=== PATIENT | male | born 1950 | race Caucasian/White ===

== ENCOUNTER 2020-02-13 13:38 | Inpatient (IN) | payer OTHER, MEDICARE ==
[~2020-02-13] VITALS: Ht 182.9 cm; Wt 96.0 kg
[~2020-02-13 13:38] MED LIST: ASPI-1 PO; ATOR40TA PO; GABA-532 PO; HYDR-3972 PO; IBUP-1984 PO; METF-438 PO; METH-603 PO
[2020-02-13] MEDS ORDERED: CefTRIAXone 2gm/D5W 50ml BAG 50 ML IV ONE (15:50)
[2020-02-13] MEDS ORDERED: HYDROcodone/acetaminophen 5mg/325mg tablet PO ONE (15:50)
[2020-02-13] MEDS ORDERED: ondansetron 4mg rapidly disintigrating tab PO ONE (15:50)
[2020-02-13] MEDS ORDERED: normal saline 1000ML IV soln IV ONE (15:50)
[2020-02-13] MEDS ORDERED: vancomycin/NS 1 GM ADD-VANTAGE 250 ML IV ONE (15:50)
[2020-02-13] MEDS ORDERED: mag hydrox/Alum hydrox/simeth 30ml oral suspension PO PRN (16:45)
[2020-02-13] MEDS ORDERED: dextrose 50%-water 50ml dispensing syringe IV PRN ×2 (16:45)
[2020-02-13] MEDS ORDERED: dextrose ORAL solution 15 GM/59 ML bottle PO PRN ×2 (16:45)
[2020-02-13] MEDS ORDERED: acetaminophen 325mg tablet PO PRN ×2 (16:45)
[2020-02-13] MEDS ORDERED: morphine 2 MG/ML inj. syringe IV PRN (16:45)
[2020-02-13] MEDS ORDERED: MESSAGE TO PHARMACY PO ONE (16:45)
[2020-02-13] MEDS ORDERED: HYDROcodone/acetaminophen 5mg/325mg tablet PO PRN (16:45)
[2020-02-13] MEDS ORDERED: glucagon, human recombinant 1mg kit SUBCUT PRN (16:45)
[2020-02-13] MEDS ORDERED: ondansetron/PF 4mg/2ml inj IV PRN (16:45)
[2020-02-13] MEDS ORDERED: magnesium hydroxide 30ml (MOM) UD suspension PO PRN (16:45)
[2020-02-13 17:00] LABS: BASOPHILS # (AUTO) 0.1 X10'3 (0-0.2); BASOPHILS % (AUTO) 1.2 % (0-1); EOSINOPHILS # (AUTO) 0.3 X10'3 (0-0.9); EOSINOPHILS % (AUTO) 2.3 % (0-6); HEMATOCRIT 40.4 % (42.0-52.0); HEMOGLOBIN 13.8 g/dl (14.0-17.9); LYMPHOCYTES # (AUTO) 2.6 X10'3 (1.1-4.8); LYMPHOCYTES % (AUTO) 24.2 % (21-51); MEAN CORPUSCULAR HEMOGLOBIN 30.4 PG (27.0-31.0); MEAN CORPUSCULAR HGB CONC 34.2 g/dL (33.0-36.5); MEAN PLATELET VOLUME 8.4 FL (7.4-10.4); MONOCYTES # (AUTO) 0.7 X10'3 (0-0.9); MONOCYTES % (AUTO) 6.8 % (2-12); NEUTROPHILS % (AUTO) 65.5 % (42-75); PLATELET COUNT 312 X10'3 (140-440); RED BLOOD COUNT 4.54 X10'6 (4.70-6.10); RED CELL DISTRIBUTION WIDTH 14.1 % (11.5-14.5); WHITE BLOOD COUNT 10.7 X10'3 (4.5-11.0)
[2020-02-13 17:14] LABS: ALANINE AMINOTRANSFERASE 25 U/L (12-78); ALBUMIN 3.9 G/DL (3.4-5.0); ALKALINE PHOSPHATASE 83 IU/L (46-116); ANION GAP 10 (8-16); ASPARTATE AMINO TRANSFERASE 17 U/L (10-37); BILIRUBIN,TOTAL 0.3 MG/DL (0.1-1.0); BLOOD UREA NITROGEN 22 MG/DL (7-18); CALCIUM 8.9 MG/DL (8.5-10.1); CHLORIDE 105 MMOL/L (99-107); CREATININE 0.88 MG/DL (0.60-1.10); GLUCOSE 109 MG/DL (70-104); MAGNESIUM 2.1 MG/DL (1.5-2.4); POTASSIUM 4.2 MMOL/L (3.5-5.1); SODIUM 141 MMOL/L (135-145); TOTAL CARBON DIOXIDE 26.1 MMOL/L (24-32); TOTAL PROTEIN 7.9 G/DL (6.4-8.2); eGFR 86 ML/MIN
[2020-02-13 17:15] LABS: CLARITY,URINE CLEAR (Clear); COLOR,URINE YELLOW (Yellow); GLUCOSE, URINE NEGATIVE (Neg); KETONES,URINE NEGATIVE (Neg); LEUKOCYTE ESTERASE ,URINE NEGATIVE (Neg); NITRITES, URINE NEGATIVE (Neg); OCCULT BLOOD,URINE TRACE-INTACT (Neg); PROTEIN,URINE NEGATIVE (Neg); UROBILINOGEN,URINE 0.2 E.U/dL (0.2-1.0)
[2020-02-13 17:20] LABS: UA COLLECTION TYPE CLN CATCH MIDSTREAM
[2020-02-13 17:22] LABS: HEMOGLOBIN A1C 7.3 % (4.5-6.2)
[2020-02-13 17:48] LABS: BACTERIA,URINE NONE SEEN /HPF (Neg); RBC,URINE 0-2 /HPF (0-2); WBC,URINE NONE SEEN /HPF (0-4)
[2020-02-13 17:49] LABS: SQUAMOUS EPITHELIAL CELL,UR NONE SEEN /LPF (FEW)
[2020-02-13] MEDS ORDERED: NAPR375T5 PO (17:49)
[2020-02-13] MEDS ORDERED: ACET-1025 PO (17:51)
[2020-02-13] MEDS ORDERED: DICL100G30 TOP (17:52)
[2020-02-13] MEDS: insulin glargine (Lantus) pen - multi-dose SQ SCH (21:00)
[2020-02-13 23:32] VITALS: BP 120/68
[2020-02-14] VITALS (20 sets, daily range): BP systolic 135–172; BP diastolic 45–102
[2020-02-14] MEDS: HYDROcodone/acetaminophen 10/325mg tab PO PRN ×2 (05:43→20:21)
[2020-02-14] MEDS: vancomycin/NS 1 GM ADD-VANTAGE 250 ML IV SCH ×2 (05:44→18:36)
--- NOTE | 2020-02-14 06:39 | NUR ---
Patient in room [facility]. I have received report from TERA Browning and had the opportunity to ask questions and assume patient care.
--- NOTE | 2020-02-14 06:55 | NUR ---
REPORT GIVEN TO CRISSY. PAIN MED GIVEN TO PATIENT. NO ACUTE DISTRESS
[2020-02-14 08:12] LABS: BASOPHILS # (AUTO) 0.1 X10'3 (0-0.2); EOSINOPHILS # (AUTO) 0.3 X10'3 (0-0.9); EOSINOPHILS % (AUTO) 2.9 % (0-6); HEMATOCRIT 38.1 % (42.0-52.0); LYMPHOCYTES # (AUTO) 2.3 X10'3 (1.1-4.8); LYMPHOCYTES % (AUTO) 24.5 % (21-51); MEAN CORPUSCULAR HEMOGLOBIN 30.3 PG (27.0-31.0); MEAN CORPUSCULAR VOLUME 89.2 FL (78-98); MEAN PLATELET VOLUME 8.4 FL (7.4-10.4); MONOCYTES # (AUTO) 0.8 X10'3 (0-0.9); MONOCYTES % (AUTO) 8.1 % (2-12); NEUTROPHILS % (AUTO) 63.5 % (42-75); PLATELET COUNT 285 X10'3 (140-440); RED BLOOD COUNT 4.28 X10'6 (4.70-6.10); RED CELL DISTRIBUTION WIDTH 14.1 % (11.5-14.5); WHITE BLOOD COUNT 9.4 X10'3 (4.5-11.0)
[2020-02-14 08:42] LABS: ALBUMIN 3.3 G/DL (3.4-5.0); ANION GAP 11 (8-16); BLOOD UREA NITROGEN 21 MG/DL (7-18); BUN/CREATININE RATIO 23.9 (5.4-32.0); CHLORIDE 105 MMOL/L (99-107); CREATININE 0.88 MG/DL (0.60-1.10); GLUCOSE 126 MG/DL (70-104); POTASSIUM 4.3 MMOL/L (3.5-5.1); SODIUM 140 MMOL/L (135-145); TOTAL CARBON DIOXIDE 24.5 MMOL/L (24-32); eGFR 86 ML/MIN
[2020-02-14 09:09] LABS: CALCIUM 8.5 MG/DL (8.5-10.1)
[2020-02-14] MEDS: morphine 2 MG/ML inj. syringe IV PRN (09:16)
[2020-02-14] MEDS ORDERED: ATOR20TA66 PO (09:56)
[2020-02-14] MEDS ORDERED: sevoflurane 250ml liquid IH ONE (15:07)
[2020-02-14] MEDS ORDERED: midazolam 2 mg/2 ml injection ONE (15:12)
[2020-02-14] MEDS ORDERED: fentaNYL/PF 50MCG/1 ML 2ML syringe ONE (15:12)
[2020-02-14] MEDS ORDERED: morphine 2 MG/ML inj. syringe IV PRN (15:15)
[2020-02-14] MEDS ORDERED: meperidine/PF 25mg/ml syringe IV PRN ×2 (15:15)
[2020-02-14] MEDS ORDERED: ondansetron/PF 4mg/2ml inj IV PRN (15:15)
[2020-02-14] MEDS ORDERED: proCHLORperazine 10 MG/2 ml inj IV PRN (15:15)
[2020-02-14] MEDS ORDERED: ringers solution, lacted 1,000 ML IV SCH (15:15)
[2020-02-14] MEDS ORDERED: propofol inj 20 ML IV ONE (15:30)
[2020-02-14] MEDS ORDERED: BUPIVAcaine/PF 2.5 mg/ml (0.25%) 30ml vial ONE (15:40)
[2020-02-14] MEDS ORDERED: meperidine/PF 25mg/ml syringe ONE (15:47)
[2020-02-14] MEDS ORDERED: bacitracin 15gm ointment TP ONE (15:54)
--- NOTE | 2020-02-14 15:59 | NUR ---
DM education, A1c 7.3%, patient was not in the room at the time of visit. needs written DM education handout with verbal review prior to discharge. Addendum: 02/14/20 at [address] Amended: Links added.
[2020-02-14] MEDS: meperidine/PF 25mg/ml syringe IV PRN ×2 (16:23→16:30)
[2020-02-14] MEDS: morphine 4 MG/ML inj SYRINge IV PRN ×3 (16:44→17:13)
--- NOTE | 2020-02-14 17:43 | NUR ---
Report called to receiving nurse. Transferred via BED, NO Belongings, NURSES AIDE IN ROOM, BLL, CALL LIGHT GIVEN TO PT, SIDE RAILS UP X 2, RECEIVING RN NOTIFIED OF PTS ARRIVAL. Special Issues communicated to receiving nurse. YES. Addendum: 02/14/20 at 1810 by Lyndsey Crouch RN Amended: Links added.
--- NOTE | 2020-02-14 18:45 | NUR ---
Problems reprioritized. Patient report given, questions answered & plan of care reviewed with TERA Gatica.
[2020-02-14] MEDS: lactobacillus rhamnosus 10,000 MMU CELLS/CAPSULE PO SCH (20:17)
[2020-02-14] MEDS: insulin glargine (Lantus) pen - multi-dose SQ SCH (20:56)
[2020-02-15] VITALS: BP 104/53
[2020-02-15] MEDS: HYDROcodone/acetaminophen 10/325mg tab PO PRN ×5 (00:31→21:11)
[2020-02-15 04:00] VITALS: BP 126/66
[2020-02-15] MEDS: vancomycin/NS 1 GM ADD-VANTAGE 250 ML IV SCH ×2 (05:19→17:07)
[2020-02-15 06:34] LABS: BASOPHILS # (AUTO) 0.1 X10'3 (0-0.2); BASOPHILS % (AUTO) 1.1 % (0-1); EOSINOPHILS % (AUTO) 0.2 % (0-6); HEMATOCRIT 37.7 % (42.0-52.0); HEMOGLOBIN 12.5 g/dl (14.0-17.9); LYMPHOCYTES # (AUTO) 1.3 X10'3 (1.1-4.8); MEAN CORPUSCULAR HEMOGLOBIN 29.4 PG (27.0-31.0); MEAN CORPUSCULAR HGB CONC 33.1 g/dL (33.0-36.5); MEAN CORPUSCULAR VOLUME 88.9 FL (78-98); MEAN PLATELET VOLUME 8.2 FL (7.4-10.4); MONOCYTES # (AUTO) 0.7 X10'3 (0-0.9); MONOCYTES % (AUTO) 6.4 % (2-12); NEUTROPHILS # (AUTO) 8.2 X10'3 (1.8-7.7); NEUTROPHILS % (AUTO) 79.3 % (42-75); PLATELET COUNT 288 X10'3 (140-440); RED BLOOD COUNT 4.24 X10'6 (4.70-6.10); RED CELL DISTRIBUTION WIDTH 13.7 % (11.5-14.5); WHITE BLOOD COUNT 10.3 X10'3 (4.5-11.0)
--- NOTE | 2020-02-15 06:41 | NUR ---
Problems reprioritized. Patient report given, questions answered & plan of care reviewed with TERA Hutton.
--- NOTE | 2020-02-15 06:42 | NUR ---
Patient in room [facility]. I have received report from Soraya HALEY and had the opportunity to ask questions and assume patient care.
[2020-02-15 06:46] LABS: ALBUMIN 3.1 G/DL (3.4-5.0); ANION GAP 9 (8-16); BLOOD UREA NITROGEN 19 MG/DL (7-18); BUN/CREATININE RATIO 20.9 (5.4-32.0); CALCIUM 8.5 MG/DL (8.5-10.1); CHLORIDE 104 MMOL/L (99-107); CREATININE 0.91 MG/DL (0.60-1.10); GLUCOSE 131 MG/DL (70-104); POTASSIUM 3.7 MMOL/L (3.5-5.1); SODIUM 139 MMOL/L (135-145); TOTAL CARBON DIOXIDE 25.9 MMOL/L (24-32); eGFR 83 ML/MIN
[2020-02-15 07:00] VITALS: BP 136/77
[2020-02-15] MEDS: lactobacillus rhamnosus 10,000 MMU CELLS/CAPSULE PO SCH ×2 (07:25→19:50)
[2020-02-15] MEDS: insulin Lispro (HumaLOG) vial - multi-dose SQ SCH (09:09)
[2020-02-15] MEDS: morphine 2 MG/ML inj. syringe IV PRN ×2 (10:01→23:14)
[2020-02-15 12:00] VITALS: BP 132/63
--- NOTE | 2020-02-15 12:15 | NUR ---
Pt's blood glucose was 69 at 1200 with pt denying symptoms, 15g Glucose shot given per protocol, 1215 Blood glucose is 118. Will continue to monitor.
--- NOTE | 2020-02-15 14:54 | NUR ---
F/u: Pt seen at bedside for DM education. Pt reports checking his BG levels 2-3 times a day and states he takes his medications per rx. Pt reports having DM for roughly 8 years now and is already familiar with the diet. Pt denies questions about diabetes management at this time. Written DM education and RD contact information provided. Pt currently on a CHO controlled diet, reports consuming 100% of meals and not getting full. Pt agrees to double protein TID for satiety and reports disliking green beans, d/w dietary. Pt denies food allergies, difficulty chewing/swallowing, or constipation/diarrhea. LBM 02/13 per bedside RN. Will continue to follow. Addendum: 02/15/20 at [address] Amended: Links added.
[2020-02-15] MEDS ORDERED: VANCOMYCIN LEVEL IV ONE (16:30)
--- NOTE | 2020-02-15 17:26 | NUR ---
1700 bag of Vanco split open when preparing for infusion. Pharmacy phoned.
--- NOTE | 2020-02-15 18:15 | NUR ---
Problems reprioritized. Patient report given, questions answered & plan of care reviewed with Soraya HALEY.
[2020-02-15 20:00] VITALS: BP 137/77
[2020-02-15] MEDS: insulin glargine (Lantus) pen - multi-dose SQ SCH (21:00)
[2020-02-16] VITALS: BP 144/79
[2020-02-16] MEDS: HYDROcodone/acetaminophen 10/325mg tab PO PRN ×2 (01:22→05:17)
[2020-02-16] MEDS: vancomycin/NS 1 GM ADD-VANTAGE 250 ML IV SCH (05:14)
--- NOTE | 2020-02-16 06:04 | NUR ---
Problems reprioritized. Patient report given, questions answered & plan of care reviewed with TERA Wiley.
--- NOTE | 2020-02-16 06:39 | NUR ---
Patient in room [facility]. I have received report from TERA Lira and had the opportunity to ask questions and assume patient care.
[2020-02-16 06:49] LABS: ALBUMIN 3.3 G/DL (3.4-5.0); ANION GAP 5 (8-16); BLOOD UREA NITROGEN 22 MG/DL (7-18); BUN/CREATININE RATIO 22.2 (5.4-32.0); CALCIUM 8.4 MG/DL (8.5-10.1); CHLORIDE 107 MMOL/L (99-107); CREATININE 0.99 MG/DL (0.60-1.10); GLUCOSE 111 MG/DL (70-104); SODIUM 139 MMOL/L (135-145); TOTAL CARBON DIOXIDE 26.9 MMOL/L (24-32); eGFR 75 ML/MIN
[2020-02-16 06:51] LABS: BASOPHILS # (AUTO) 0.1 X10'3 (0-0.2); BASOPHILS % (AUTO) 1.1 % (0-1); EOSINOPHILS # (AUTO) 0.3 X10'3 (0-0.9); EOSINOPHILS % (AUTO) 2.8 % (0-6); HEMATOCRIT 37.4 % (42.0-52.0); HEMOGLOBIN 12.9 g/dl (14.0-17.9); LYMPHOCYTES # (AUTO) 2.9 X10'3 (1.1-4.8); LYMPHOCYTES % (AUTO) 30.9 % (21-51); MEAN CORPUSCULAR HEMOGLOBIN 30.6 PG (27.0-31.0); MEAN CORPUSCULAR HGB CONC 34.5 g/dL (33.0-36.5); MEAN CORPUSCULAR VOLUME 88.7 FL (78-98); MEAN PLATELET VOLUME 8.4 FL (7.4-10.4); MONOCYTES # (AUTO) 0.8 X10'3 (0-0.9); MONOCYTES % (AUTO) 8.5 % (2-12); NEUTROPHILS # (AUTO) 5.3 X10'3 (1.8-7.7); NEUTROPHILS % (AUTO) 56.7 % (42-75); PLATELET COUNT 275 X10'3 (140-440); RED BLOOD COUNT 4.22 X10'6 (4.70-6.10); WHITE BLOOD COUNT 9.4 X10'3 (4.5-11.0)
[2020-02-16 07:00] VITALS: BP 153/93
[2020-02-16] MEDS: lactobacillus rhamnosus 10,000 MMU CELLS/CAPSULE PO SCH ×2 (07:57→19:29)
[2020-02-16 11:00] VITALS: BP 155/84
[2020-02-16] MEDS: oxyCODONE/APAP 10/325mg tablet PO PRN ×2 (14:40→19:29)
--- NOTE | 2020-02-16 15:00 | NUR ---
Dr Sage called regarding dressing orders and follow up appointment. Orders received to leave dressing in place until pt is able to follow up in wound care clinic on Tuesday or Tuesday. Dressing is currently CDI. Will continue to monitor.
[2020-02-16] MEDS ORDERED: OXYC-145 PO (15:09)
[2020-02-16] MEDS ORDERED: DOXY-243 PO (15:09)
[2020-02-16] MEDS: VANCOmycin 1250MG/NS 250ml Bag 250 ML IV SCH (17:17)
--- NOTE | 2020-02-16 18:11 | NUR ---
Problems reprioritized. Patient report given, questions answered & plan of care reviewed with TERA Dickerson.
--- NOTE | 2020-02-16 18:53 | NUR ---
Patient in room [facility]. I have received report from Franklyn HALEY and had the opportunity to ask questions and assume patient care. Addendum: 02/16/20 at 1854 by Jayla Herrera RN Inez HALEY i received report from
[2020-02-16 20:00] VITALS: BP 129/71
[2020-02-16] MEDS: insulin glargine (Lantus) pen - multi-dose SQ SCH (21:00)
[2020-02-17 00:14] VITALS: BP 150/88
[2020-02-17] MEDS: oxyCODONE/APAP 10/325mg tablet PO PRN ×3 (05:22→19:50)
[2020-02-17] MEDS: VANCOmycin 1250MG/NS 250ml Bag 250 ML IV SCH (05:22)
--- NOTE | 2020-02-17 06:16 | NUR ---
Problems reprioritized. Patient report given, questions answered & plan of care reviewed with Loreta HALEY.
--- NOTE | 2020-02-17 06:26 | NUR ---
Patient in room [facility]. I have received report from TERA Dickerson and had the opportunity to ask questions and assume patient care.
[2020-02-17 07:03] LABS: BASOPHILS # (AUTO) 0.1 X10'3 (0-0.2); BASOPHILS % (AUTO) 1.2 % (0-1); EOSINOPHILS # (AUTO) 0.3 X10'3 (0-0.9); EOSINOPHILS % (AUTO) 3.1 % (0-6); HEMATOCRIT 41.1 % (42.0-52.0); HEMOGLOBIN 13.9 g/dl (14.0-17.9); LYMPHOCYTES # (AUTO) 2.3 X10'3 (1.1-4.8); LYMPHOCYTES % (AUTO) 26.5 % (21-51); MEAN CORPUSCULAR HGB CONC 33.7 g/dL (33.0-36.5); MEAN PLATELET VOLUME 8.4 FL (7.4-10.4); MONOCYTES # (AUTO) 0.8 X10'3 (0-0.9); MONOCYTES % (AUTO) 9.5 % (2-12); NEUTROPHILS # (AUTO) 5.1 X10'3 (1.8-7.7); NEUTROPHILS % (AUTO) 59.7 % (42-75); PLATELET COUNT 294 X10'3 (140-440); RED BLOOD COUNT 4.62 X10'6 (4.70-6.10); RED CELL DISTRIBUTION WIDTH 13.9 % (11.5-14.5); WHITE BLOOD COUNT 8.6 X10'3 (4.5-11.0)
[2020-02-17 07:04] LABS: ALBUMIN 3.5 G/DL (3.4-5.0); ANION GAP 9 (8-16); BLOOD UREA NITROGEN 24 MG/DL (7-18); BUN/CREATININE RATIO 24.5 (5.4-32.0); CALCIUM 8.7 MG/DL (8.5-10.1); CHLORIDE 105 MMOL/L (99-107); CREATININE 0.98 MG/DL (0.60-1.10); GLUCOSE 124 MG/DL (70-104); POTASSIUM 4.1 MMOL/L (3.5-5.1); SODIUM 140 MMOL/L (135-145); TOTAL CARBON DIOXIDE 26.2 MMOL/L (24-32); eGFR 76 ML/MIN
[2020-02-17] MEDS: lactobacillus rhamnosus 10,000 MMU CELLS/CAPSULE PO SCH ×2 (07:13→19:50)
[2020-02-17 07:58] VITALS: BP 163/85
[2020-02-17] MEDS: ceFAZolin/D5W- 1GM premix 50 ML IV SCH ×2 (10:12→16:09)
[2020-02-17 11:00] VITALS: BP 137/73
--- NOTE | 2020-02-17 14:40 | NUR ---
DM Consult: Addressed; see prior [place] note. Addendum: 02/17/20 at [address] Amended: Links added.
--- NOTE | 2020-02-17 18:24 | NUR ---
Problems reprioritized. Patient report given, questions answered & plan of care reviewed with TERA Coates.
--- NOTE | 2020-02-17 18:45 | NUR ---
Patient in room [facility]. I have received report from Anyi HALEY and had the opportunity to ask questions and assume patient care.
[2020-02-17 20:11] VITALS: BP 145/86
[2020-02-17] MEDS: insulin glargine (Lantus) pen - multi-dose SQ SCH (20:46)
[2020-02-17] MEDS: insulin Lispro (HumaLOG) vial - multi-dose SQ SCH (20:47)
[2020-02-18] VITALS: BP 125/64
[2020-02-18] MEDS: ceFAZolin/D5W- 1GM premix 50 ML IV SCH ×2 (00:12→07:31)
[2020-02-18] MEDS ORDERED: VANCOMYCIN LEVEL IV ONE (04:30)
[2020-02-18] MEDS: oxyCODONE/APAP 10/325mg tablet PO PRN ×3 (04:30→13:12)
--- NOTE | 2020-02-18 06:22 | NUR ---
Problems reprioritized. Patient report given, questions answered & plan of care reviewed with Loreta HALEY.
[2020-02-18 06:46] LABS: BASOPHILS # (AUTO) 0.1 X10'3 (0-0.2); BASOPHILS % (AUTO) 0.8 % (0-1); EOSINOPHILS # (AUTO) 0.3 X10'3 (0-0.9); EOSINOPHILS % (AUTO) 3.3 % (0-6); HEMATOCRIT 41.2 % (42.0-52.0); HEMOGLOBIN 13.9 g/dl (14.0-17.9); LYMPHOCYTES # (AUTO) 2.1 X10'3 (1.1-4.8); LYMPHOCYTES % (AUTO) 24.5 % (21-51); MEAN CORPUSCULAR HEMOGLOBIN 29.7 PG (27.0-31.0); MEAN CORPUSCULAR HGB CONC 33.8 g/dL (33.0-36.5); MEAN CORPUSCULAR VOLUME 87.9 FL (78-98); MEAN PLATELET VOLUME 8.4 FL (7.4-10.4); MONOCYTES # (AUTO) 0.9 X10'3 (0-0.9); MONOCYTES % (AUTO) 10.1 % (2-12); NEUTROPHILS # (AUTO) 5.3 X10'3 (1.8-7.7); NEUTROPHILS % (AUTO) 61.3 % (42-75); PLATELET COUNT 295 X10'3 (140-440); RED BLOOD COUNT 4.69 X10'6 (4.70-6.10); RED CELL DISTRIBUTION WIDTH 13.8 % (11.5-14.5); WHITE BLOOD COUNT 8.6 X10'3 (4.5-11.0)
[2020-02-18 06:49] LABS: ALBUMIN 3.5 G/DL (3.4-5.0); ANION GAP 9 (8-16); BLOOD UREA NITROGEN 27 MG/DL (7-18); BUN/CREATININE RATIO 26.5 (5.4-32.0); CHLORIDE 103 MMOL/L (99-107); CREATININE 1.02 MG/DL (0.60-1.10); GLUCOSE 129 MG/DL (70-104); SODIUM 138 MMOL/L (135-145); TOTAL CARBON DIOXIDE 25.7 MMOL/L (24-32); eGFR 73 ML/MIN
[2020-02-18] MEDS: lactobacillus rhamnosus 10,000 MMU CELLS/CAPSULE PO SCH (07:31)
[2020-02-18 07:54] VITALS: BP 126/75
[2020-02-18 11:30] VITALS: BP 144/81
--- NOTE | 2020-02-18 14:50 | NUR ---
Patient discharged home via and taken from unit via wheelchair with x1 staff. Patient alert, oriented and in no apparent distress at time of discharge. Patient PIV removed with cannula intact. Patient took all belongings with him including discharge instructions. Patient discharge instructions discussed with him and he was given time for questions and answers. Patient was educated on when to take the next dose of each of his medications based on when the last dose was given. Patient home med list had Tylenol extra strength as one of his home medications. Patient was educated that his Percocet has acetaminophen and to be careful with the amount that he is taking so that he doesn't exceed the daily dose. Patient stated an understanding of this. CM was able to set up an appointment at the wound clinic for the patient on Tuesday at 0900. Patient stated an understanding of this as well and he was given the phone number and educated on where to check in on Tuesday. Patient stated feeling confident on discharge instructions.
== END 2020-02-18 14:49 | disposition home health service (06) | DRG 603 ==
LOC: ER 13:38 → ED HOLD 16:45 → SUR 3N 20:15
PROVIDERS: ADMIT Internal Medicine; ATTEND Internal Medicine
PROC: 0J9 Subcutaneous Tissue and Fascia, Drainage (ICD-10-PCS; principal; 2020-02-14 15:07)
DX: L02.511 Cutaneous abscess of right hand (principal); M65.9 Synovitis and tenosynovitis, unspecified; E11.9 Type 2 diabetes mellitus without complications; Z20.822 Contact with and (suspected) exposure to COVID-19; Z83.3 Family history of diabetes mellitus; Z87.891 Personal history of nicotine dependence; Z79.899 Other long term (current) drug therapy; Z88.0 Allergy status to penicillin
CPT/HCPCS: 36415; 71045; 73140; 80048; 80053; 80202; 81001; 82948; 83036; 83605; 83735; 83880; 84145; 85025; 85651; 87040; 87070; 87075; 87077; 87081; 87102; 87186; 87635; 93005; 96365; 99285; A4215; A4618; A6222; A6266; A6449; A7000; G0378; J0690; J0696; J1815; J2175; J2250; J2270; J2704; J3010; J3370; J3490; J7030

== ENCOUNTER 2020-04-01 10:51 | Emergency (ER) | payer OTHER, MEDICARE ==
[~2020-04-01] VITALS: Ht 182.9 cm; Wt 95.7 kg
[~2020-04-01 10:51] MED LIST changes: +ACET-1025 PO; -ASPI-1 PO; +ATOR20TA66 PO; -ATOR40TA PO; +DICL100G30 TOP; -GABA-532 PO; -HYDR-3972 PO; -IBUP-1984 PO; -METH-603 PO; +NAPR375T5 PO; +OXYC-145 PO
[2020-04-01 13:18] VITALS: BP 129/68
[2020-04-01] MEDS ORDERED: CLIN300C71 PO (14:27)
== END 2020-04-01 15:09 | disposition home or self-care (01) ==
LOC: ER 10:51
DX: L03.011 Cellulitis of right finger (principal); Z79.2 Long term (current) use of antibiotics; Z79.899 Other long term (current) drug therapy; Z88.0 Allergy status to penicillin
CPT/HCPCS: 99283

== ENCOUNTER → 2024-10-15 | Emergency (ER) | payer OTHER, BC, MEDICAID ==
[~2024-10-15] VITALS: Ht 182.9 cm; Wt 80.9 kg
[~2024-10-15] MED LIST changes: -ACET-1025 PO; -DICL100G30 TOP; +DOXY-224 PO; +EMPA25TA PO; +HYDR-3964 PO; +HYDR-3965 PO; -NAPR375T5 PO; +NICO-630 TD; -OXYC-145 PO; +TRAM50TA PO; +VIT1CAPS46 PO
[2024-10-15 12:50] VITALS: BP 113/72; PULSE 90; RESP 18; TEMP 96.7; O2SAT 98
[2024-10-15 13:24] LABS: MEAN PLATELET VOLUME 8.1 FL (7.4-10.4); RED CELL DISTRIBUTION WIDTH 14.6 % (11.5-14.5)
[2024-10-15 13:36] LABS: CREATININE 0.74 MG/DL (0.60-1.10); TOTAL CARBON DIOXIDE 29.4 MMOL/L (24-32); eCRCL 99 ML/MIN; eGFR > 90 ML/MIN
== END | disposition home or self-care (01) ==
LOC: ER 12:45
DX: L02.212 Cutaneous abscess of back [any part, except buttock and flank] (principal); Z53.21 Procedure and treatment not carried out due to patient leaving prior to being seen by health care provider
CPT/HCPCS: 36415; 80048; 83605; 84145; 85025; 87040

== ENCOUNTER 2024-10-16 10:05 | Inpatient (IN) | payer OTHER, BC, MEDICAID ==
[~2024-10-16] VITALS: Ht 175.3 cm; Wt 76.4 kg
[~2024-10-16 10:05] MED LIST changes: -DOXY-224 PO; -HYDR-3965 PO; -NICO-630 TD
[2024-10-16] MEDS ORDERED: iohexol 300mg/ml 100ml inj. ONE (10:29)
[2024-10-16] MEDS ORDERED: piperacillin/tazo 3.375gm/50ml 50 ML IV SCH (10:35)
--- NOTE | 2024-10-16 10:39 | Physician Documentation ---
History of Present Illness ~ Chief Complaint: Abscess Stated Complaint: IV ANTIBIOTICS Time Seen by MD: 10:08 Primary Medical Doctor: Josiah Feliz MD HPI 74-year-old male returns to the ED after eloping from the lobby yesterday after waiting 12 hours to be seen [facility] him to come to the ER for IV antibiotics secondary to a developing abscess/mass on the upper portion of his back in line with the spine and thoracic region. States that the wound is not draining reports increased pain and swelling denies any fevers or nausea vomiting Day of Onset: Oct 16, 2024 Tetanus Within 5 Years: Yes (FROM THE [facility]) Medication Reconciliation Allergies: Coded Allergies: Penicillins (Unverified Allergy, Unknown, CHILD, UNKNOWN REACTION, 10/16/24) Scheduled Atorvastatin Calcium (LIPITOR tablet), 80 MG PO DAILY, (Reported) Empagliflozin (Jardiance), 0.5 TAB PO QAM, (Reported) Metformin HCl (Metformin HCl), 1 TAB PO QAM, (Reported) Metformin HCl (Metformin HCl), 1 TAB PO EVERY OTHER EVENING, (Reported) Vit C/E/Zn/Coppr/Lutein/Zeaxan (Preservision Areds 2 Softgel), 1 CAP PO BID, (Reported) Scheduled PRN Hydrocodone Bit/Acetaminophen (Hydrocodon-Acetaminophen 5-325), 1 TAB PO Q4H PRN for MODERATE PAIN 4-6 Tramadol Hcl (Ultram), 1 TAB PO TID PRN for pain, (Reported) Past Medical History Past Medical History: Diabetes Past Surgical History: orthopedic surgeries Lives with: Spouse Lives In: Home Occupation: retired Review of Systems All Other Systems at this time: Reviewed and Negative ROS As stated above in the HPI, otherwise all systems are reviewed and negative. Physical Exam Vital Signs: Temperature: 98.4, Source: Temporal, Heart Rate: 84, Respiratory Rate: 18, BP: 115/75, Pulse Oximetry: 99, Weight: 76.400 Oxygen Flow Rate: 0 Physical Exam General: Alert, no apparent distress. HEENT: PERRL, EOMI, no injection, moist mucous membranes. Neck: Full range of motion. Respiratory: Lungs clear, no respiratory distress. Neurologic: Oriented x4. Psychiatric: Normal mood and affect. Skin: Multiple small areas ulcerations patient's back. In the upper thoracic region in line with the spine there is a large wound, growth, abscess that is purulent with surrounding erythema. Approximately 8 x 8 cm in size Progress Results/Orders Results/Orders Orders - AMPARO LEES RADIATOR CORE TESTER Ct Chest (10/16/24 11:05) Culture Blood (10/16/24 10:19) Chest,Single View (10/16/24 10:19) Monitor (10/16/24 10:19) Saline Lock (10/16/24 10:19) Page Hospitalist (10/16/24 ) Completed Orders - AMPARO LEES RADIATOR CORE TESTER Ct Chest (10/16/24 11:05) Cbc/Diff (10/16/24 10:19) Urinalysis, Cult If Indicated (10/16/24 10:19) Chest,Single View (10/16/24 10:19) Procalcitonin (10/16/24 10:19) BMP (10/16/24 10:19) Lacticsepsis (10/16/24 10:19) Iohexol 300mg/Ml 100ml Inj. (Omnipaque-3 (10/16/24 10:29) Piperacillin/Tazo 3.375gm/50ml (Zosyn 3. (10/16/24 10:35) Vancomycin*Pharmacy To Dose* (Vancomycin (10/16/24 10:35) Piperacillin/Tazo 3.375gm/50ml (Zosyn 3. (10/16/24 10:40) Vancomycin/Ns 1 Gm Add-[place] (Vancomyc (10/16/24 11:00) Medications Received in ER Medications (Trade) Dose Ordered Sig/Marti Route PRN Reason Start Time Stop Time Status Last Admin Dose Admin Piperacillin/ Tazobactam/ Dextrose 50 ml @ 12.5 mls/hr ONCE ONCE IV 10/16/24 10:40 10/16/24 14:34 DC 10/16/24 10:50 12.5 MLS/HR Vancomycin HCl 250 ml @ 166 mls/hr ONCE ONCE IV 10/16/24 11:00 10/16/24 12:30 DC 10/16/24 11:57 166 MLS/HR ([place] 10/325mg tab) 1 tab Q4H PRN PO SEVERE PAIN 7-10 10/16/24 12:25 10/16/24 14:17 1 TAB (Dilaudid inj.) 1 mg Q4H PRN IV SEVERE PAIN 7-10 10/16/24 12:25 10/16/24 15:42 1 MG Sodium Chloride 1,000 ml @ 100 mls/hr Q10H IV 10/16/24 12:25 10/16/24 14:15 100 MLS/HR Vital Signs 10/16/24 10/16/24 10/16/24 10:15 11:28 11:59 Temp 98.4 Pulse 84 82 Resp 18 16 B/P (MAP) 115/75 122/73 (89) Pulse Ox 99 95 O2 Flow Rate 0 0 Laboratory Tests Test 10/16/24 10:33 White Blood Count 14.7 H Red Blood Count 4.69 L Hemoglobin 13.4 L Hematocrit 39.9 L Mean Corpuscular Volume 85.0 Mean Corpuscular Hemoglobin 28.5 Mean Corpuscular Hemoglobin Concent 33.6 Red Cell Distribution Width 14.8 H Platelet Count 452 H Mean Platelet Volume 7.7 Neutrophils (%) (Auto) 78.3 H Lymphocytes (%) (Auto) 10.9 L Monocytes (%) (Auto) 6.9 Eosinophils (%) (Auto) 3.1 Basophils (%) (Auto) 0.8 Neutrophils # (Auto) 11.5 H Lymphocytes # (Auto) 1.6 Monocytes # (Auto) 1.0 H Eosinophils # (Auto) 0.5 Basophils # (Auto) 0.1 CBC Comment Sodium Level 136 Potassium Level 3.5 Chloride Level 97 L Carbon Dioxide Level 29.2 Anion Gap 10 Blood Urea Nitrogen 11 Creatinine 0.76 Estimated GFR/1.73 m2 > 90 BUN/Creatinine Ratio 14.5 Glucose Level 127 H Lactic Acid Level 1.8 Calcium Level 9.3 Albumin 3.0 L Procalcitonin < 0.05 Chemistry Comments Microbiology Date/Time Source Procedure Growth Status 10/16/24 10:53 Blood Hand Right Blood Culture - Preliminary NEGATIVE (LESS THAN 24 HOURS) Resulted Medical Decision Making Findings Patient clearly meets criteria for IV antibiotics based on the elevated white count and a positive lactic. I ordered a fluid bolus along with IV antibiotics and requested hospital admission Differential Dx:Considerations: Include: Abscess, Bacteremia, Cellulitis, Erysipelas, Felon, Gas gangrene, Hidrademitis suppurativa, Impetigo, Lymphangitis, Osteromyelitis, Paronychia, Septicemia, Other Departure Disposition: 09 ADMITTED INPATIENT Impression: Primary Impression: Abscess Additional Impression: Wound abscess Referrals: NO PRIMARY CARE PROVIDER (PCP) Signature Scribe Signature: sherley Attestation: Scribed for Amparo Lees Director News by Amparo Santana NP . 10/16/24 10:38 AMPARO LEES NP Oct 16, 2024 10:39
[2024-10-16 10:41] LABS: MEAN PLATELET VOLUME 7.7 FL (7.4-10.4); RED CELL DISTRIBUTION WIDTH 14.8 % (11.5-14.5)
--- NOTE | 2024-10-16 10:48 | RADIOLOGY REPORT ---
EXAM: DI CHEST,SINGLE VIEW Indication: back pain Technique: Single frontal view of the chest was obtained Comparison: CHEST,SINGLE VIEW on DOS: 02/13/20 FINDINGS: Lines and Tubes: None Lungs: No focal consolidation. Pleura: No effusion. No large pneumothorax. Cardiomediastinal contours: Unremarkable Bones: Displaced right multiple rib fractures. IMPRESSION: Displaced right multiple rib fractures. Recommend further evaluation with CT chest.
[2024-10-16] MEDS: piperacillin/tazo 3.375gm/50ml 50 ML IV ONE (10:50)
[2024-10-16 10:59] LABS: CREATININE 0.76 MG/DL (0.60-1.10); TOTAL CARBON DIOXIDE 29.2 MMOL/L (24-32); eCRCL 88 ML/MIN; eGFR > 90 ML/MIN
--- NOTE | 2024-10-16 11:25 | RADIOLOGY REPORT ---
Procedure: CT CT CHEST W/ IV CONTRAST 10/16/2024 10:54 AM History: soft tisue mass thoracic Comparison: DI CHEST,SINGLE VIEW on DOS: 10/16/24, CHEST,SINGLE VIEW on DOS: 02/13/20 Technique: After the uneventful administration of contrast intravenously, CT imaging was performed through the chest. Coronal and sagittal reformations were performed by the technologist. Radiation Dose : CT Dose: CTDI volume is 16.4 mGy. Dose-length product is 715.1 mGy*cm Findings: Lower neck: Normal thyroid. Lungs: No focal consolidation. Mild centrilobular emphysema. Heart/Vascular Structures: Normal heart size. No pericardial effusion. Lymph Nodes: No adenopathy Pleura: No pleural effusion or significant pneumothorax. Musculoskeletal: Fractures of the right posterolateral 6th through 10th ribs. Soft tissues: Normal. Upper abdomen: Limited portions of the upper abdomen are unremarkable. IMPRESSION: Fractures of the right posterolateral 6th through 10th ribs. No discernible underlying mass. Limited examination secondary to patient positioning.
[2024-10-16] MEDS: vancomycin/NS 1 GM ADD-VANTAGE 250 ML X 1 DOSE IV ONE (11:57)
[2024-10-16] MEDS ORDERED: HYDROcodone/acetaminophen 5mg/325mg tablet PO PRN (12:25)
[2024-10-16] MEDS ORDERED: bisacodyl 10mg suppository rectal RC PRN (12:25)
[2024-10-16] MEDS ORDERED: potassium Cl 40MEQ/1/2NS 520ml 520 ML IV PRN (12:25)
[2024-10-16] MEDS ORDERED: magnesium sulf-water 2g/50mL 50 ML IV PRN (12:25)
[2024-10-16] MEDS: nicotine 7mg patch - 24hr TD ONE (12:25)
[2024-10-16] MEDS ORDERED: dextrose 50%-water 50ml dispensing syringe IV PRN ×2 (12:25)
[2024-10-16] MEDS ORDERED: potassium Cl 20 mEq SR tablet PO PRN ×2 (12:25)
[2024-10-16] MEDS ORDERED: albuterol 2.5 MG/3 ML nebule NEB PRN (12:25)
[2024-10-16] MEDS ORDERED: DEXTROSE 15 GM of carb/4 tabs (each vial/BOTTLE has 4 tablets) PO PRN ×2 (12:25)
[2024-10-16] MEDS ORDERED: mag hydrox/Alum hydrox/simeth 30ml oral suspension PO PRN (12:25)
[2024-10-16] MEDS ORDERED: glucagon, human recombinant 1mg kit SUBCUT PRN (12:25)
[2024-10-16] MEDS ORDERED: ipratropium/albuterol 3ml nebule NEB PRN (12:25)
[2024-10-16] MEDS ORDERED: magnesium sulf-water 4G/100mL 100 ML IV PRN (12:25)
[2024-10-16] MEDS ORDERED: ondansetron/PF 4mg/2ml inj IV PRN (12:25)
[2024-10-16 13:30] LABS: LEUKOCYTE ESTERASE ,URINE NEGATIVE (Neg); NITRITES, URINE NEGATIVE (Neg); OCCULT BLOOD,URINE NEGATIVE (Neg)
[2024-10-16 13:33] LABS: UA COLLECTION TYPE CLN CATCH MIDSTREAM
[2024-10-16 13:41] VITALS: PULSE 82; RESP 16; O2SAT 94
[2024-10-16] MEDS: normal saline 1000ml 1,000 ML IV SCH (14:15)
[2024-10-16] MEDS: HYDROcodone/acetaminophen 10/325mg tab PO PRN (14:17)
[2024-10-16] MEDS: HYDROmorphone inj. 0.5 MG/0.5 ML DISP.SYRIN IV PRN (15:42)
[2024-10-16 17:15] VITALS: BP 107/63; PULSE 68; RESP 20; TEMP 98; O2SAT 97
[2024-10-16] MEDS: cefepime 1GM in D5W 50mL 50 ML IV SCH (17:27)
[2024-10-16] MEDS: INSULIN LISPRO 100 UNIT/ML INSULN.PEN MULTI-DOSE SQ SCH (17:51)
[2024-10-16 18:43] VITALS: RESP 15; O2SAT 98
[2024-10-16 20:00] VITALS: RESP 18; O2SAT 98
[2024-10-16] MEDS: K and/or MAG REPLACEMENT MC SCH (20:00)
[2024-10-16] MEDS: enoxaparin 40mg/0.4ml syringe SQ SCH (20:00)
[2024-10-16] MEDS: docusate sod 100mg capsule PO SCH (20:00)
[2024-10-16] MEDS: HYDROmorphone/PF 0.2 MG/ML SYRINGE IV PRN (20:02)
--- NOTE | 2024-10-16 20:09 | HISTORY AND PHYSICAL ---
History & Physical Providers to CC ~ History of Present Illness Reason for Admit\Complaint: Abscess mid back History of Present Illness This is a 74-year-old male who has multiple small areas of focal ulcerations on his mid back and states that that has largest area in all these areas has been there for about two weeks there was an area that is quite large on his back that is 8 x 12 cm the patient states that this has been there for two weeks he has chills however denies any fever has a has a right shoulder pain for five days. The patient does have an elevated white blood cell count [id number] with a left shift and started on IV cefepime and IV vancomycin the drainage is culture by nursing and sent for anaerobic and aerobic and gram stain Allergies: Coded Allergies: Penicillins (Unverified Allergy, Unknown, CHILD, UNKNOWN REACTION, 10/16/24) Home Medications Home Medications Active Hydrocodon-Acetaminophen 5-325 (Hydrocodone Bit/Acetaminophen) 1 Each Tablet 1 Tab PO Q4H PRN Reported Metformin HCl 1,000 Mg Tablet 1 Tab PO HS Jardiance (Empagliflozin) 25 Mg Tablet 0.5 Tab PO QAM LIPITOR tablet (Atorvastatin Calcium) 20 Mg Tablet 80 Mg PO DAILY DO NOT TAKE WITH GRAPEFRUIT JUICE Past Medical History Past Medical History Type 2 diabetes mellitus Hep C GERD Hyperlipidemia Past Surgical History Surgical History Comment Right hand surgery secondary to an abscess Family History Family History: Patient reports no known family medical history. Past Social History Social History Comment Smokes currently four cigarettes a day, rare alcohol intake, denies any illicit drug use. Full code status ROS ROS Except for positives in the HPI the rest of the 14 point review systems is negative Exam Vitals: Vital Signs Date Time Temp Pulse Resp B/P (MAP) Pulse Ox O2 Delivery O2 Flow Rate FiO2 10/16/24 18:43 15 98 Room Air 10/16/24 17:15 98.0 68 107/63 (78) 10/16/24 13:41 0 21 General: Gen. No acute distress alert and oriented 4 Lungs clear to ascultation bilaterally, no wheezes rales or rhonchi appreciated Heart normal sinus rhythm no murmurs rubs or clicks noted Abdomen soft nontender bowel sounds are normoactive Lower extremities no clubbing cyanosis, nor edema appreciated bilaterally Skin multiple scattered mildly erythematous ulcerations 1-2 cm in diameter large midline semi fluctuant mass in the upper mid back 8 x 12 cm Diagnostic Data Last Recorded Lab Results: 10/16/24 1033 10/16/24 1033 Problems: (1) Abscess Status: Acute Additional Plan # abscess of the mid back- CT scan is negative for any deep masses reviewing the images myself the area in question is superficial and not in any deep structures Wound cultures ordered for aerobic and anaerobic and Gram stain IV cefepime IV vancomycin # hepatitis-C Daily CMP to monitor liver function # type 2 diabetes mellitus Hyper and hypoglycemic protocol # hyperlipidemia Awaiting med reconciliation # Tobacco use disorder-I spent 7 minutes discussing smoking cessation with the patient at the time of admission including the risk of continuing smoke: Lung cancer, stroke, heart attack, poor wound healing, , risk of MRSA skin infections. T The patient has accepted a 7 mg nicotine patch. # DVT prophylaxis SCDs SQ Lovenox I spent a total of 17 minutes on reviewing various resuscitative measures/ ACP with the patient at the time of admission. The patient has decided on full code status Date of Service: Oct 16, 2024 Billing Provider: JACK ALBERT DO Common Visit Codes: [id number] INP/OBS CARE (HIGH) Secondary Visit Codes: [id number] CHNG SMOKING 3-10M, [id number] CARE PLAN 30 MINUTES JACK ALBETR DO Oct 16, 2024 20:09
[2024-10-16 20:19] VITALS: PULSE 78; RESP 16; O2SAT 96
[2024-10-16 22:00] VITALS: BP 122/62; PULSE 75; RESP 14; TEMP 97.6; O2SAT 96
[2024-10-17] VITALS (7 sets, daily range): BP systolic 96–110; BP diastolic 56–83; PULSE 68–79; RESP 12–18; TEMP 97.2–98.5; O2SAT 93–98
[2024-10-17] MEDS: vancomycin/NS 1 GM ADD-VANTAGE 250 ML IV SCH (00:42)
[2024-10-17] MEDS: morphine 4 MG/ML inj SYRINge IV PRN (05:19)
[2024-10-17 06:00] LABS: MEAN PLATELET VOLUME 8.6 FL (7.4-10.4); RED CELL DISTRIBUTION WIDTH 14.7 % (11.5-14.5)
[2024-10-17] MEDS: nicotine 7mg patch - 24hr TD SCH (08:00)
[2024-10-17 08:48] LABS: CREATININE 0.67 MG/DL (0.60-1.10); TOTAL CARBON DIOXIDE 24.6 MMOL/L (24-32); eCRCL 100 ML/MIN; eGFR > 90 ML/MIN
--- NOTE | 2024-10-17 15:46 | RADIOLOGY REPORT ---
EXAM: CT CT UPPER EXTREM(SHOULDER/ARM) INDICATION: RIGHT SHOULDER-severe pain limited range of motion EXAM DATE: 10/17/2024 03:21 PM COMPARISON: None TECHNIQUE: Multiple axial CT images of the right shoulder were obtained using bone algorithm. Axial and coronal reformatting was done. Bone and soft tissue windows were reviewed. Radiation Dose Information: CT Dose: CTDI volume is 24.97 mGy. Dose-length product is 621.42 mGy*cm Findings/Impression: There is no evidence of an acute fracture, dislocation, blastic, or lytic lesions. Chronic and subacute right rib fracture deformities. [id number] degenerative changes of the right acromioclavicular and glenohumeral joints. No radiopaque foreign bodies. No joint effusion or superficial soft tissue abnormalities. If symptoms persist or worsen, recommend MRI for further evaluation.
--- NOTE | 2024-10-17 22:28 | PROGRESS NOTE ---
Daily Progress Note Providers to CC ~ Antibiotic Timeout Antibiotic Ordered?: Yes Subjective The patient was experiencing significant pain in the area of his abscess in his back and various other skin ulcerations which the pain control was improved with Percocet. The patient's wound culture so far grew out gram positive cocci with heavy growth Objective Vital Signs Date Time Temp Pulse Resp B/P (MAP) Pulse Ox O2 Delivery O2 Flow Rate FiO2 10/17/24 21:57 18 10/17/24 21:04 68 98 Room Air* 0 21 10/17/24 18:00 97.2 96/56 (69) Result Diagram: 10/17/24 0500 10/17/24 0500 Gen. No acute distress alert and oriented 4 Lungs clear to ascultation bilaterally, no wheezes rales or rhonchi appreciated Heart normal sinus rhythm no murmurs rubs or clicks noted Abdomen soft nontender bowel sounds are normoactive Lower extremities no clubbing cyanosis, nor edema appreciated bilaterally Skin multiple scattered mildly erythematous ulcerations 1-2 cm in diameter large midline semi fluctuant mass in the upper mid back 8 x 12 cm Problem\Assessment\Plan Problems/Diagnosis: (1) Abscess # abscess of the mid back- CT scan is negative for any deep masses reviewing the images myself the area in question is superficial and not in any deep structures Wound cultures ordered for aerobic and anaerobic and Gram stain IV cefepime IV vancomycin 10/16 wound care evaluated the patient today and recommended # hepatitis-C Daily CMP to monitor liver function # type 2 diabetes mellitus Hyper and hypoglycemic protocol # hyperlipidemia Awaiting med reconciliation # Tobacco use disorder-I spent 7 minutes discussing smoking cessation with the patient at the time of admission including the risk of continuing smoke: Lung cancer, stroke, heart attack, poor wound healing, , risk of MRSA skin infections. T The patient has accepted a 7 mg nicotine patch. # right shoulder pain with significant decreased range of motion CT scan was obtained Which demonstrates [id number] degenerative changes of the right acromioclavicular and glenoid joints otherwise was unremarkable # DVT prophylaxis SCDs SQ Lovenox Date of Service: Oct 17, 2024 Billing Provider: JACK ALBERT DO Common Visit Codes: [id number] INP/OBS CARE(HIGH) JACK ALBERT DO Oct 17, 2024 22:27
[2024-10-17] MEDS: VANCOMYCIN LEVEL IV ONE (23:37)
[2024-10-18] VITALS (8 sets, daily range): BP systolic 101–123; BP diastolic 49–72; PULSE 58–90; RESP 14–18; TEMP 97.3–98.5; O2SAT 96–97
[2024-10-18 04:55] LABS: MEAN PLATELET VOLUME 8.2 FL (7.4-10.4); RED CELL DISTRIBUTION WIDTH 14.8 % (11.5-14.5)
[2024-10-18 05:19] LABS: CREATININE 0.62 MG/DL (0.60-1.10); TOTAL CARBON DIOXIDE 29.4 MMOL/L (24-32); eCRCL 108 ML/MIN; eGFR > 90 ML/MIN
[2024-10-18] MEDS ORDERED: HYDR-3965 PO (10:11)
[2024-10-18] MEDS: VANCOmycin 1250MG/NS 250ml Bag 250 ML IV SCH (12:38)
--- NOTE | 2024-10-18 17:06 | CONSULTATION REPORT ---
Consult Providers to CC ~ History of Present Illness Reason for Admit\Complaint: Pain and swelling of upper back, we drainage History of Present Illness 74-year-old male presented initially to the ER on 10/16/2024 for above complaints. He supposedly when AMA. Signs and symptoms began approximately 1 week ago. He was seen at the [facility] and was started on antibiotics and was advised to presented to emergency room. He denies any fever, chills, nausea, vomiting. Patient also has complaint of right posterior shoulder mass which has been present for over 6 months. Primary care physician recommended no treatment. Patient is concerned. Allergies: Coded Allergies: Penicillins (Unverified Allergy, Unknown, CHILD, UNKNOWN REACTION, 10/16/24) Home Medications Home Medications Active Reported [place] 5/325 MG (Acetaminophen/Hydrocodone Bitart) 5 Mg/325 Mg Tablet 1 Tab PO Q4H PRN Metformin HCl 1,000 Mg Tablet 1 Tab PO HS Jardiance (Empagliflozin) 25 Mg Tablet 0.5 Tab PO QAM LIPITOR tablet (Atorvastatin Calcium) 20 Mg Tablet 80 Mg PO DAILY DO NOT TAKE WITH GRAPEFRUIT JUICE Past Medical History Past Medical History Type 2 diabetes mellitus Hep C GERD Hyperlipidemia Past Surgical History Surgical History Comment Surgery on the right hand for abscess. Family History Family History: Patient reports no known family medical history. Past Social History Social History Comment Currently smokes, denies alcohol abuse or illicit drug use. ROS ROS All within normal limits except HPI Exam Vitals: Vital Signs Date Time Temp Pulse Resp B/P (MAP) Pulse Ox O2 Delivery O2 Flow Rate FiO2 10/18/24 14:02 20 10/18/24 10:00 98.0 90 102/63 (76) 96 Room Air 10/18/24 07:48 0 21 Problem this General: Mild distress due to pain HEENT: NC/AT, SANDRA, no pharyngeal exudates Neck: Supple, nontender Chest: Clear to auscultation Cardiovascular: Regular rate and rhythm Abdomen: Soft, nondistended, nontender Extremities: No clubbing, cyanosis or edema Central Nervous System: Alert and oriented x3, no gross or focal deficits Musculoskeletal: Good range of motion, no weakness is noted Skin: Warm, dry, no diaphoresis Back: Large area of erythema, swelling, eroded area of skin with drainage, Right posterior shoulder: +1.75 cm raised mass, +erythema, +tenderness Diagnostic Data Last Recorded Lab Results: 10/18/[id number] Problems: (1) Wound abscess Status: Acute Assessment & Plan: Assessment: Cellulitis and abscess of upper back. Right posterior shoulder mass. Plan: NPO after midnight, continue IV antibiotics. Incision and drainage of upper back abscess, excisional biopsy of right posterior shoulder mass. The risks and benefits of the planned procedure were presented including but not limited to continued infection, bleeding, poor wound healing, and nonresolution of signs and symptoms. He is given the opportunity to ask questions, and all his questions were answered to his satisfaction and present time. FCO ENGLE DO Oct 18, 2024 17:06
--- NOTE | 2024-10-18 22:20 | PROGRESS NOTE ---
Daily Progress Note Providers to CC ~ Antibiotic Timeout Antibiotic Ordered?: Yes Subjective I did inform the patient that his shoulder x-ray demonstrated osteoarthritis that he may require shoulder surgery in the future- the patient is evaluated by Dr. Jorgensen today surgeon who is planning to take the patient to the OR in the a.m. Objective Vital Signs Date Time Temp Pulse Resp B/P (MAP) Pulse Ox O2 Delivery O2 Flow Rate FiO2 10/18/24 20:21 60 16 96 Room Air* 0 21 10/18/24 10:00 98.0 102/63 (76) Result Diagram: 10/18/2443010/18/24430 Gen. No acute distress alert and oriented 4 Lungs clear to ascultation bilaterally, no wheezes rales or rhonchi appreciated Heart normal sinus rhythm no murmurs rubs or clicks noted Abdomen soft nontender bowel sounds are normoactive Lower extremities no clubbing cyanosis, nor edema appreciated bilaterally Skin multiple scattered mildly erythematous ulcerations 1-2 cm in diameter large midline semi fluctuant mass in the upper mid back 8 x 12 cm Problem\Assessment\Plan Problems/Diagnosis: (1) Abscess # abscess of the mid back- CT scan is negative for any deep masses reviewing the images myself the area in question is superficial and not in any deep structures Wound cultures ordered for aerobic and anaerobic and Gram stain IV cefepime IV vancomycin 10/16 wound care evaluated the patient today and recommended surgical evaluation 10/[address] Jorgensen surgeon who will take the patient to the OR tomorrow # hepatitis-C Daily CMP to monitor liver function # type 2 diabetes mellitus Hyper and hypoglycemic protocol # hyperlipidemia Continue atorvastatin # Tobacco use disorder-I spent 7 minutes discussing smoking cessation with the patient at the time of admission including the risk of continuing smoke: Lung cancer, stroke, heart attack, poor wound healing, , risk of MRSA skin infections. T The patient has accepted a 7 mg nicotine patch. # right shoulder pain with significant decreased range of motion CT scan was obtained Which demonstrates [id number] degenerative changes of the right acromioclavicular and glenoid joints otherwise was unremarkable # DVT prophylaxis SCDs SQ Lovenox Date of Service: Oct 18, 2024 Billing Provider: JACK ALBERT DO Common Visit Codes: [id number] INP/OBS CARE(HIGH) JACK ALBERT DO Oct 18, 2024 22:20
[2024-10-19] VITALS (25 sets, daily range): BP systolic 102–139; BP diastolic 52–85; PULSE 58–89; RESP 11–20; TEMP 97–99.5; O2SAT 93–100
[2024-10-19 05:55] LABS: MEAN PLATELET VOLUME 8.7 FL (7.4-10.4); RED CELL DISTRIBUTION WIDTH 14.9 % (11.5-14.5)
[2024-10-19 06:21] LABS: CREATININE 0.73 MG/DL (0.60-1.10); TOTAL CARBON DIOXIDE 31.6 MMOL/L (24-32); eCRCL 91 ML/MIN; eGFR > 90 ML/MIN
[2024-10-19] MEDS ORDERED: HYDROmorphone inj. 0.5 MG/0.5 ML DISP.SYRIN IV PRN (10:45)
--- NOTE | 2024-10-19 11:43 | ELECTROCARDIOGRAPH REPORT ---
[facility] Test Date: 2024-10-19 Test Time: 11:38:46 Pat Name: NONI MUELLER Department: Room: [place] [address] A Gender: M Preventive Medicine Officer: KAREN : 1950 Requested By: JACK ALBERT Order Number: [id number] Reading MD: Dr. TIO Iniguez Measurements Intervals [place] Rate: 65 P: 59 CO: 184 QRS: 61 QRSD: 86 T: 62 QT: 416 QTc: 432 Interpretive Statements Sinus rhythm Electronically Signed On 10-19-2024 16:49:[address] TIO Iniguez Please click the below link to view image of tracing.
[2024-10-19] MEDS ORDERED: fentaNYL/PF 50MCG/1 ML 2ML syringe IV PRN (14:30)
[2024-10-19] MEDS: ringers solution, lacted 1,000 ML IV SCH (14:30)
[2024-10-19] MEDS ORDERED: morphine 4 MG/ML inj SYRINge IV PRN (14:30)
[2024-10-19] MEDS ORDERED: ondansetron/PF 4mg/2ml inj IV PRN (14:30)
[2024-10-19] MEDS ORDERED: hydrALAZINE 20mg/ml inj. IV PRN (14:30)
[2024-10-19] MEDS ORDERED: labetalol 20mg/4ml (5mg/ml) syringe IV PRN (14:30)
[2024-10-19] MEDS ORDERED: BUPIVAcaine/PF 2.5mg/ml (0.25%) 10ml vial ONE (15:35)
[2024-10-19] MEDS ORDERED: LIDOcaine 1% (10mg/ml)w/preservative inj. 20ml MDV ONE (15:35)
[2024-10-19] MEDS ORDERED: ondansetron/PF 4mg/2ml inj ONE (16:40)
[2024-10-19] MEDS ORDERED: LIDOcaine 2% (20mg/ml) 5ml vial ONE (16:40)
[2024-10-19] MEDS ORDERED: propofol inj 20 ML IV ONE (16:40)
[2024-10-19] MEDS ORDERED: acetaminophen 1,000mg/100ml IV 100 ML IV ONE (16:41)
[2024-10-19] MEDS ORDERED: fentaNYL/PF 50MCG/1 ML 2ML syringe ONE (17:00)
[2024-10-19] MEDS ORDERED: bacitracin 15gm ointment TP ONE (17:08)
[2024-10-19] MEDS: fentaNYL/PF 50MCG/1 ML 2ML syringe IV PRN (17:51)
--- NOTE | 2024-10-19 18:06 | OPERATIVE REPORT ---
Operative Report Operative Report Date of Procedure: Oct 19, 2024 Pre-Operative Diagnosis: Abscess of back, suspicious neoplasm right posterior shoulder Post-Operative Diagnosis SAME as PRE-Op Procedure Performed Incision and drainage of back abscess, excisional biopsy of right posterior shoulder neoplasm Surgeon: Carl Jorgensen DO Superintendent Job None Anesthesiologist: Rios An (Current) Type of Anesthesia: General Findings: As per operative dictation Complications None Estimated Blood Loss: Minimal Specimen Removed: 1) right posterior shoulder neoplasm 2) cultures of back abscess Description of Procedure: 74-year-old male admitted to the hospital for severe back pain associated with abscess of the back. Concurrently patient has a suspicious neoplasm or mass of the right posterior shoulder. Incision and drainage of back abscess and excis ional biopsy of right posterior lesion is planned. The risks and benefits of the planned procedure were presented including but not limited to infection, bleeding, poor wound healing, and nonresolution of signs and symptoms. He was given the opportunity to ask questions, and all his questions were answered to his satisfaction present time. Patient was already on prophylactic IV antibiotics. Patient then brought to the operating room placed in a supine position. After general anesthesia was administered, sequential compression device were placed in lower extremities. The patient was then positioned in a left lateral decubitus position with appropriate padding at pressure points and support. The right posterior shoulder neoplasm with dressed 1st. A portion of the lesion was grasped with Allis clamps and incised using Bovie cautery. Hemostasis was maintained and controlled. Next the back abscess had a draining ulcer. And incisions made to extend the opening of the ulcer. Copious purulent material was expressed. Cultures were taken. The abscess was then probed bluntly with Judith clamp. Copious irrigation with IrriSept was performed. Next the cavity was then packed with quarter-inch iodoform packing. Compression dressing was applied. Bacitracin and Band-Aid was applied to the right posterior shoulder biopsy site. Patient tolerated the procedure well, was extubated and brought to the PACU in stable condition. Problems/Diagnosis: (1) Wound abscess CARL JORGENSEN DO Oct 19, 2024 18:06
--- NOTE | 2024-10-19 21:10 | PROGRESS NOTE ---
Daily Progress Note Providers to CC ~ Antibiotic Timeout Antibiotic Ordered?: Yes Subjective The patient's wound culture of his back grew out MSSA and antibiotics were changed to clindamycin IV 600 mg q.6 hours- the patient was taken to the OR and had his back abscess drained as well as a adjacent lesion biopsied that has a possible neoplasm Objective Vital Signs Date Time Temp Pulse Resp B/P (MAP) Pulse Ox O2 Delivery O2 Flow Rate FiO2 10/19/24 20:34 16 10/19/24 18:45 133/80 (97) 10/19/24 18:30 72 96 Room Air 0.0 10/19/24 17:16 98.1 10/19/24 09:07 21 Result Diagram: 10/19/24 0513 10/19/24 0513 Gen. No acute distress alert and oriented 4 Lungs clear to ascultation bilaterally, no wheezes rales or rhonchi appreciated Heart normal sinus rhythm no murmurs rubs or clicks noted Abdomen soft nontender bowel sounds are normoactive Lower extremities no clubbing cyanosis, nor edema appreciated bilaterally Skin multiple scattered mildly erythematous ulcerations 1-2 cm in diameter large midline semi fluctuant mass in the upper mid back 8 x 12 cm Coagulation Studies Laboratory Tests Test 10/19/24 11:16 Activated Partial Thromboplast Time 27 SECONDS (22-32) Problem\Assessment\Plan Problems/Diagnosis: (1) Abscess # abscess of the mid back- CT scan is negative for any deep masses reviewing the images myself the area in question is superficial and not in any deep structures Wound cultures ordered for aerobic and anaerobic and Gram stain IV cefepime IV vancomycin 10/16 wound care evaluated the patient today and recommended surgical evaluation 10/[address] Jorgensen surgeon who will take the patient to the OR tomorrow 10/19 status post incision and drainage by Dr. Jorgensen a back abscess and biopsy of the associated lesion which is possible neoplasm- wound culture grew out MSSA and IV clindamycin is started and I DC IV cefepime. # hepatitis-C Daily CMP to monitor liver function # type 2 diabetes mellitus Hyper and hypoglycemic protocol # hyperlipidemia Continue atorvastatin # Tobacco use disorder-I spent 7 minutes discussing smoking cessation with the patient at the time of admission including the risk of continuing smoke: Lung cancer, stroke, heart attack, poor wound healing, , risk of MRSA skin infections. T The patient has accepted a 7 mg nicotine patch. # right shoulder pain with significant decreased range of motion CT scan was obtained Which demonstrates [id number]-qt-[id number] degenerative changes of the right acromioclavicular and glenoid joints otherwise was unremarkable Possibly secondary back mass- biopsied by Dr. Jorgensen # DVT prophylaxis SCDs SQ Lovenox Date of Service: Oct 19, 2024 Billing Provider: JACK ALBERT DO Common Visit Codes: [id number] INP/OBS CARE(HIGH) JACK ALBERT DO Oct 19, 2024 21:09
[2024-10-19] MEDS ORDERED: VANCOMYCIN LEVEL IV ONE (23:30)
[2024-10-20] VITALS (9 sets, daily range): BP systolic 103–115; BP diastolic 58–78; PULSE 60–71; RESP 15–18; TEMP 97.3–98.7; O2SAT 92–98
[2024-10-20 06:06] LABS: MEAN PLATELET VOLUME 7.9 FL (7.4-10.4); RED CELL DISTRIBUTION WIDTH 14.8 % (11.5-14.5)
[2024-10-20 06:42] LABS: CREATININE 0.64 MG/DL (0.60-1.10); TOTAL CARBON DIOXIDE 31.9 MMOL/L (24-32); eCRCL 104 ML/MIN; eGFR > 90 ML/MIN
--- NOTE | 2024-10-20 11:25 | PROGRESS NOTE ---
Progress Note Dictate Providers to CC ~ Progress Note: Patient states status post incision and drainage of upper back abscess. Patient states medial portal. Pain is recommended. Antibiotic Ordered?: Yes Objective Vitals Vital Signs Date Time Temp Pulse Resp B/P (MAP) Pulse Ox O2 Delivery O2 Flow Rate FiO2 10/20/24 10:49 67 16 92 Room Air* 0 21 10/20/24 10:47 97.3 103/78 (86) Lab Results: 10/20/24 0535 10/20/24 0535 Objective Lungs: Clear CVS: RRR Upper back: Dressing is clean, dry, intact, area less than. Coagulation Studies Laboratory Tests Test 10/19/24 11:16 Activated Partial Thromboplast Time 27 SECONDS (22-32) Problem\Assessment\Plan Problems/Diagnosis: (1) Abscess Assessment & Plan: Assessment: Status post severe. Abscess. Critical stable. Leukocytosis improved Plan: Wound care with packing change to be done in a.m. 10/21/2024. Continue present management with IV antibiotic FCO ENGLE DO Oct 20, 2024 11:25
--- NOTE | 2024-10-20 21:31 | PROGRESS NOTE ---
Daily Progress Note Providers to CC ~ Antibiotic Timeout Antibiotic Ordered?: Yes Subjective The patient's white blood cell count has normalized his daughter was at bedside today. Dr. Jorgensen will be changing the packing tomorrow and anticipate the patient will be discharged on Tuesday. Objective Vital Signs Date Time Temp Pulse Resp B/P (MAP) Pulse Ox O2 Delivery O2 Flow Rate FiO2 10/20/24 20:53 70 16 96 Room Air* 0 21 10/20/24 10:47 97.3 103/78 (86) Result Diagram: 10/20/24 0535 10/20/24 0535 Gen. No acute distress alert and oriented 4 Lungs clear to ascultation bilaterally, no wheezes rales or rhonchi appreciated Heart normal sinus rhythm no murmurs rubs or clicks noted Abdomen soft nontender bowel sounds are normoactive Lower extremities no clubbing cyanosis, nor edema appreciated bilaterally Skin multiple scattered mildly erythematous ulcerations 1-2 cm in diameter large midline semi fluctuant mass in the upper mid back 8 x 12 cm Coagulation Studies Laboratory Tests Test 10/19/24 11:16 Activated Partial Thromboplast Time 27 SECONDS (22-32) Problem\Assessment\Plan Problems/Diagnosis: (1) Abscess # abscess of the mid back- CT scan is negative for any deep masses reviewing the images myself the area in question is superficial and not in any deep structures Wound cultures ordered for aerobic and anaerobic and Gram stain IV cefepime IV vancomycin 10/16 wound care evaluated the patient today and recommended surgical evaluation 10/[address] Jorgensen surgeon who will take the patient to the OR tomorrow 10/19 status post incision and drainage by Dr. Jorgensen a back abscess and biopsy of the associated lesion which is possible neoplasm- wound culture grew out MSSA and IV clindamycin is started and I DC IV cefepime. 10/20 the patient is white blood cell count continues to downtrend- Dr. Jorgensen we will be changing the packing tomorrow. # hepatitis-C Daily CMP to monitor liver function # type 2 diabetes mellitus Hyper and hypoglycemic protocol # hyperlipidemia Continue atorvastatin # Tobacco use disorder-I spent 7 minutes discussing smoking cessation with the patient at the time of admission including the risk of continuing smoke: Lung cancer, stroke, heart attack, poor wound healing, , risk of MRSA skin infections. T The patient has accepted a 7 mg nicotine patch. # right shoulder pain with significant decreased range of motion CT scan was obtained Which demonstrates [id number]-pm-[id number] degenerative changes of the right acromioclavicular and glenoid joints otherwise was unremarkable Possibly secondary to back mass- biopsied by Dr. Jorgensen # DVT prophylaxis SCDs SQ Lovenox Date of Service: Oct 20, 2024 Billing Provider: JACK ALBERT DO Common Visit Codes: [id number] INP/OBS CARE(HIGH) JACK ALBERT DO Oct 20, 2024 21:31
[2024-10-21] VITALS (7 sets, daily range): BP systolic 107–128; BP diastolic 53–75; PULSE 58–64; RESP 17–20; TEMP 96.9–97.9; O2SAT 97
[2024-10-21 05:39] LABS: MEAN PLATELET VOLUME 8.2 FL (7.4-10.4); RED CELL DISTRIBUTION WIDTH 15.1 % (11.5-14.5)
[2024-10-21 06:06] LABS: CREATININE 0.77 MG/DL (0.60-1.10); TOTAL CARBON DIOXIDE 29.9 MMOL/L (24-32); eCRCL 87 ML/MIN; eGFR > 90 ML/MIN
--- NOTE | 2024-10-21 10:21 | PROGRESS NOTE ---
Progress Progress Note: Patient seen, status post incision and drainage of back abscess, and biopsy of right posterior shoulder neoplasm POD#2. Patient has no complaints. States to feel gradually better. Denies any fever, chills. Exam General Appearance: alert, no apparent distress Wound General Appearance: Other (Describe in Note) (No active bleeding, minimal drainage. Erythema significantly better, swelling significantly better. Biopsy site granulating well, no active bleeding.) Problem\Assessment\Plan Problems/Diagnosis: (1) Abscess Status: Acute Assessment & Plan: Assessment: Status post incision and drainage, clinically improved. Leukocytosis improved Plan: Wound packing removed. Continue present management with IV antibiotics. Reinforce dressing as needed. Daily local wound care. Awaiting official pathology from right shoulder lesion biopsy site. Results/Orders Result Diagram: 10/21/2452410/21/24524 Dietary Evaluation Recommendations by RD: Other - see comments Comments: II 10/26 +[id number] Initial: Pt admit for back abscess, currently POD #1 s/p I&D of back abscess with excision and biopsy of posterior right shoulder mass. Pt has been eating well on 75 g CHO controlled diet, documented with average 96% meal intake throughout LOS. LBM 10/19 per EMR. No nutrition intervention implemented at this time. Will continue to follow and make recommendations as appropriate. Recommendations: 1) Continue 75 g CHO controlled diet 2) Monitor need for ONS/additional protein 3) Routine bowel care 4) Weekly scaled weights Expected Outcomes/Goals: Meet minimum 75% estimated protein and energy needs, wt maintenance, bowel regularity, wound healing, BG 80-180 mg/dL FCO ENGLE DO Oct 21, 2024 10:21
--- NOTE | 2024-10-21 20:57 | PROGRESS NOTE ---
Daily Progress Note Providers to CC ~ Antibiotic Timeout Antibiotic Ordered?: Yes Subjective The patient is states that the abscess in his back is somewhat tender but is significantly improved . Dr. Jorgensen removed with the packing today and wound care we will see the patient tomorrow Objective Vital Signs Date Time Temp Pulse Resp B/P (MAP) Pulse Ox O2 Delivery O2 Flow Rate FiO2 10/21/24 17:26 18 10/21/24 10:00 97.9 64 116/70 (85) 97 Room Air 10/21/24 08:56 0 21 Result Diagram: 10/21/2452410/21/24524 Gen. No acute distress alert and oriented 4 Lungs clear to ascultation bilaterally, no wheezes rales or rhonchi appreciated Heart normal sinus rhythm no murmurs rubs or clicks noted Abdomen soft nontender bowel sounds are normoactive Lower extremities no clubbing cyanosis, nor edema appreciated bilaterally Skin multiple scattered mildly erythematous ulcerations 1-2 cm in diameter large midline semi fluctuant mass in the upper mid back 8 x 12 cm Coagulation Studies Laboratory Tests Test 10/19/24 11:16 Activated Partial Thromboplast Time 27 SECONDS (22-32) Problem\Assessment\Plan Problems/Diagnosis: (1) Abscess # abscess of the mid back- CT scan is negative for any deep masses reviewing the images myself the area in question is superficial and not in any deep structures Wound cultures ordered for aerobic and anaerobic and Gram stain IV cefepime IV vancomycin 10/16 wound care evaluated the patient today and recommended surgical evaluation 10/[address] Jorgensen surgeon who will take the patient to the OR tomorrow 10/19 status post incision and drainage by Dr. Jorgensen a back abscess and biopsy of the associated lesion which is possible neoplasm- wound culture grew out MSSA and IV clindamycin is started and I DC IV cefepime. 10/20 the patient is white blood cell count continues to downtrend- Dr. Jorgensen we will be changing the packing tomorrow. 10/21 Dr. Jorgensen removed the packing today # hepatitis-C Daily CMP to monitor liver function # type 2 diabetes mellitus Hyper and hypoglycemic protocol # hyperlipidemia Continue atorvastatin # Tobacco use disorder-I spent 7 minutes discussing smoking cessation with the patient at the time of admission including the risk of continuing smoke: Lung cancer, stroke, heart attack, poor wound healing, , risk of MRSA skin infections. T The patient has accepted a 7 mg nicotine patch. # right shoulder pain with significant decreased range of motion CT scan was obtained Which demonstrates dvfj-qn-ysichucr degenerative changes of the right acromioclavicular and glenoid joints otherwise was unremarkable Possibly secondary to back mass- biopsied by Dr. Jorgensen # DVT prophylaxis SCDs SQ Lovenox Disposition: Anticipate discharge in the a.m. after seen by wound care case management we will need to coordinate for outpatient wound care follow up and medical transportation to and from appointments Date of Service: Oct 21, 2024 Billing Provider: JACK ALBERT DO Common Visit Codes: [id number] INP/OBS CARE(HIGH) JACK ALBERT DO Oct 21, 2024 20:57
[2024-10-22 06:00] VITALS: BP 108/49; PULSE 60; RESP 16; TEMP 97.4; O2SAT 96
[2024-10-22 09:53] VITALS: RESP 15; O2SAT 96
[2024-10-22 10:00] VITALS: BP 137/65; PULSE 67; RESP 18; TEMP 97.8; O2SAT 98
[2024-10-22 10:29] VITALS: PULSE 62; RESP 16; O2SAT 96
[2024-10-22] MEDS: oxyCODONE/APAP 5-325mg tablet PO PRN (10:33)
[2024-10-22] MEDS ORDERED: DOXY-224 PO (11:35)
[2024-10-22] MEDS ORDERED: NICO-630 TD (11:35)
[2024-10-22 11:40] VITALS: RESP 16
--- NOTE | 2024-10-22 23:51 | DISCHARGE SUMMARY ---
Discharge Summary Providers to CC ~ Discharge Summary Admission Diagnosis: Back abscess Hospital Course DATE OF ADMISSION: 10/16/2024 DATE OF DISCHARGE: 10/22/2024 Discharge Diagnosis\\Comment: Abscess of the mid back Hepatitis-C Type 2 diabetes mellitus Hyperlipidemia Tobacco use disorder Right shoulder mass Operations\\Procedures: Incision and drainage in the OR as well as biopsy of shoulder mass Consultants: Dr. Dashawn Jorgensen general surgeon Complications: None Condition on DC: Stable New Medications: Doxycycline Hyclate (Doxycycline Hyclate) 100 Mg Capsule 1 CAP PO Q12H for 7 Days, #14 CAP Nicotine 7 MG Patch* (Habitrol 7 MG Patch*) 1 Each Patch.td24 1 PATCH TD DAILY, #24 PATCH Do not smoke while on a nicotine patch this could markedly raise your blood pressure and your can have a stroke Continued Medications: Atorvastatin Calcium (LIPITOR tablet) 20 Mg Tablet 80 MG PO DAILY for TO LOWER CHOLESTEROL, TAB DO NOT TAKE WITH GRAPEFRUIT JUICE Empagliflozin (Jardiance) 25 Mg Tablet 0.5 TAB PO QAM for FOR DIABETES Hydrocodone Bit/Acetaminophen 5/325 MG (Hulett 5/325 MG) 5 Mg/325 Mg Tablet 1 TAB PO Q4H PRN for moderate pain 4-6, TAB Metformin HCl (Metformin HCl) 1,000 Mg Tablet 1 TAB PO HS for FOR DIABETES, TAB Discharge Summary: I admitted the patient with the following HPI:"This is a 74-year-old male who has multiple small areas of focal ulcerations on his mid back and states that that has largest area in all these areas has been there for about two weeks there was an area that is quite large on his back that is 8 x 12 cm the patient states that this has been there for two weeks he has chills however denies any fever has a has a right shoulder pain for five days. The patient does have an elevated white blood cell count [id number] with a left shift and started on IV cefepime and IV vancomycin the drainage is culture by nursing and sent for anaerobic and aerobic and gram stain." A wound culture grew out MSSA and IV antibiotics were changed to clindamycin a surgical consult with Dr. Jorgensen general surgeon occurred who took the patient to the OR for incision and drainage of the abscess and biopsy of the shoulder mass on the The wound cultures from the OR also grew out MSSA. The patient has a wound care nursing as well during hospital stay and the patient is ready to be discharged home follow up outpatient wound care the patient is was discharged with doxycycline 100 mg b.i.d. for seven days. The patient also smokes cigarettes I spent significant amount time discussing with the patient about quitting smoking the patient is discharged with a nicotine patch. The patient is ezz-wcatcry-jcebleeis diabetes mellitus and uses metformin at home the patient is on the hyper and hypoglycemic protocol in his blood sugars were controlled during hospitalization The patient has a history of hepatitis-C which was cured with treatment. Gen. No acute distress alert and oriented 4 Lungs clear to ascultation bilaterally, no wheezes rales or rhonchi appreciated Heart normal sinus rhythm no murmurs rubs or clicks noted Abdomen soft nontender bowel sounds are normoactive Lower extremities no clubbing cyanosis, nor edema appreciated bilaterally Skin multiple scattered mildly erythematous ulcerations 1-2 cm in diameter large midline semi fluctuant mass in the upper mid back 8 x 12 cm The patient felt ready to be discharged and was medically cleared to be discharged on 10/22/2024 The patient was seen and evaluated on day of discharge. Time spent on discharge 35 minutes *Problems/Diagnosis: (1) Abscess Status: Acute Total Time Spent on D/C: > 30 Minutes Date of Service: Oct 22, 2024 Billing Provider: JACK ALBERT DO Common Visit Codes: [id number] DISCH DAY >30min JACK ALBERT DO Oct 22, 2024 23:51
== END 2024-10-22 13:32 | disposition home health service (06) | DRG 603 ==
LOC: ER 10:07 → ED HOLD 12:29 → SUR 3N 16:50
PROVIDERS: ADMIT Family Medicine; ATTEND Family Medicine
PROC: BW241ZZ Computerized Tomography (CT Scan) of Chest and Abdomen using Low Osmolar Contrast (ICD-10-PCS; 2024-10-16)
PROC: 0XB20ZX Excision of Right Shoulder Region, Open Approach, Diagnostic (ICD-10-PCS; 2024-10-19)
PROC: 0J970ZZ Drainage of Back Subcutaneous Tissue and Fascia, Open Approach (ICD-10-PCS; principal; 2024-10-19 16:39)
DX: L02.212 Cutaneous abscess of back [any part, except buttock and flank] (principal); B19.20 Unspecified viral hepatitis C without hepatic coma; E11.9 Type 2 diabetes mellitus without complications; E78.5 Hyperlipidemia, unspecified; C76.41 Malignant neoplasm of right upper limb; B95.61 Methicillin susceptible Staphylococcus aureus infection as the cause of diseases classified elsewhere; F17.210 Nicotine dependence, cigarettes, uncomplicated; K21.9 Gastro-esophageal reflux disease without esophagitis; L03.312 Cellulitis of back [any part except buttock and flank]; Z79.84 Long term (current) use of oral hypoglycemic drugs; Z88.0 Allergy status to penicillin
CPT/HCPCS: 36415; 71045; 71260; 73200; 80048; 80053; 80202; 81003; 82948; 83036; 83605; 83735; 84145; 85025; 85730; 87040; 87070; 87075; 87077; 87081; 87102; 87186; 93005; 94760; 96365; 96368; 99285; A4215; A4618; A4649; A6212; A6213; A6223; A6253; A6258; A6260; A6266; A6402; A6449; A7000; G0378; J0131; J0692; J1171; J1650; J1815; J2003; J2270; J2405; J2543; J2704; J3010; J3373; J3374; J3490; J7030; Q9967

== ENCOUNTER 2024-11-26 14:25 | Outpatient (CLI) | payer BC, MEDICAID ==
[~2024-11-26 14:25] MED LIST changes: +DOXY-224 PO; -HYDR-3964 PO; +HYDR-3965 PO; +NICO-630 TD; -TRAM50TA PO; -VIT1CAPS46 PO
[2024-11-26] MEDS ORDERED: GADOTERATE MEGLUMINE 7.5 MMOL/15 ML VIAL IV ONE (17:51)
--- NOTE | 2024-11-26 21:42 | RADIOLOGY REPORT ---
EXAM: MR MRI THORACIC SPINE INDICATION: LOCALIZED SWELLING, MASS AND LUMP, UPPER RT BACK TECHNIQUE: Multiplanar, multisequence imaging of the thoracic spine without contrast. COMPARISON: CT CT CHEST W/ IV CONTRAST on DOS: 10/16/24 FINDINGS: [ANATOMY]: Normal alignment of the thoracic spine. Mild thoracic kyphosis. [BONES]: The vertebral bodies are normal in height, alignment, and marrow signal. [CORD]: Normal cord signal. [SPINAL CANAL]: No significant spinal canal narrowing. [INTERVERTEBRAL DISCS]: Diffuse disc desiccation. [FACETS]: Normal alignment of the facets. 6 mm right T12-L1 Tarlov cysts [FORAMINA]: No significant foraminal narrowing. [OTHER]: The visualized paraspinal soft tissues are unremarkable. IMPRESSION: 1. No significant MR abnormality of the thoracic spine.
== END 2024-11-26 23:59 | disposition home or self-care (01) ==
LOC: MRI 14:25
PROVIDERS: ATTEND Student in an Organized Health Care Education/Training Program
DX: R22.33 Localized swelling, mass and lump, upper limb, bilateral (principal)
CPT/HCPCS: 72157; A9575

== ENCOUNTER 2025-01-14 05:28 | Day surgery (SDC) | payer BC, MEDICAID ==
[~2025-01-14] VITALS: Ht 182.9 cm; Wt 80.7 kg
[~2025-01-14 05:28] MED LIST changes: -DOXY-224 PO; +EMPA10TA PO; -EMPA25TA PO; -NICO-630 TD
[2025-01-14 05:46] VITALS: BP 127/77; PULSE 89; RESP 16; TEMP 98; O2SAT 95
[2025-01-14] MEDS: ceFAZolin 2gm/dext,iso 50mL 50 ML IV ONE (05:47)
[2025-01-14] MEDS: ringers solution, lacted 1,000 ML IV SCH (06:13)
[2025-01-14 06:22] LABS: MEAN PLATELET VOLUME 7.7 FL (7.4-10.4); PRE OP HEMATOCRIT 41.1 % (42.0-52.0); PRE OP HEMOGLOBIN 14.0 g/dL (14.0-17.9); PRE OP PLATELET COUNT 220 X10'3 (140-440); PRE OP WHITE BLOOD COUNT 7.3 10'3 (4.8-10.8); RED CELL DISTRIBUTION WIDTH 14.4 % (11.5-14.5)
[2025-01-14] MEDS ORDERED: LIDOcaine 1% (10mg/ml)w/preservative inj. 20ml MDV ONE (06:36)
[2025-01-14] MEDS ORDERED: BUPIVAcaine/PF 2.5mg/ml (0.25%) 10ml vial ONE (06:37)
[2025-01-14 06:38] LABS: CREATININE 0.89 MG/DL (0.60-1.10); PRE OP ALT 62 U/L (30-65); PRE OP ANION GAP 12 (8-16); PRE OP AST 29 U/L (10-37); PRE OP BILIRUB, TOTAL 0.6 MG/DL (0.0-1.0); PRE OP GLUCOSE 146 MG/DL (70-104); PRE OP POTASSIUM 3.5 MMOL/L (3.4-5.1); PRE OP SODIUM 141 MMOL/L (135-145); TOTAL CARBON DIOXIDE 24.5 MMOL/L (24-32); eCRCL 81 ML/MIN; eGFR 84 ML/MIN
[2025-01-14] MEDS ORDERED: midazolam 1 mg/ML 2ml injection ONE (07:35)
[2025-01-14] MEDS ORDERED: fentaNYL/PF 50MCG/1 ML 2ML syringe ONE (07:35)
[2025-01-14] MEDS: BUPIVAcaine/PF 2.5 mg/ml (0.25%) 30ml vial IJ ONE (08:00)
[2025-01-14] MEDS: LIDOcaine 1% 30ml preserv. free vial IJ ONE (08:00)
[2025-01-14] MEDS ORDERED: bacitracin 15gm ointment TP ONE (08:10)
[2025-01-14] MEDS ORDERED: acetaminophen 1,000mg/100ml IV 100 ML IV ONE (08:34)
[2025-01-14] MEDS ORDERED: LIDOcaine 1%/PF 5ML 10 MG/ML VIAL ONE (08:34)
[2025-01-14] MEDS ORDERED: propofol inj 20 ML IV ONE (08:34)
[2025-01-14] MEDS ORDERED: dexamethasone sod phosphate 4mg/ml inj. ONE (08:34)
--- NOTE | 2025-01-14 08:43 | OPERATIVE REPORT ---
Operative Report Providers to ~ Date of Procedure: Jan 14, 2025 Pre-Operative Diagnosis: Suspicious lesion left anterior scalp, left posterior scalp, right cheek Post-Operative Diagnosis SAME as PRE-Op Procedure Performed Biopsy left anterior scalp lesion, biopsy left posterior scalp lesion, excisional biopsy right cheek lesion Surgeon: Carl Jorgensen DO Laboratory Analyst None Anesthesiologist: Odell Cline Type of Anesthesia: General Findings: As per operative dictation Complications None Prosthetics\Implants used: None Estimated Blood Loss: Minimal Specimen Removed: 1) Left anterior scalp, 2) left posterior scalp, 3) right cheek lesion, stitch at superior medial border Description of Procedure: 75-year-old male with history of basal cell carcinoma, presents for biopsy of left anterior scalp lesion, left posterior scalp lesion, wide excision biopsy of right cheek lesion. The risks and benefits of the planned procedure were presented including but not limited to infection, bleeding, poor wound healing, recurrence, and nonresolution of signs and symptoms. He was given the opportunity ask questions, and all his questions were answered to his satisfaction present time. After informed consent was obtained, patient received a dose of prophylactic IV antibiotics. Patient then brought to the op erating room placed in a supine position. After general LMA anesthesia was administered, sequential compression devices were placed on lower extremities. The scalp was prepped and draped as per usual sterile technique. The right cheek was prepped and draped as per usual sterile technique. Using combination 1% lidocaine, quarter Marcaine, all excision sites were anesthetized. The left anterior scalp lesion was addressed 1st. After adequate local anesthetic, a 3 mm punch biopsy was performed. A 4-0 Prolene horizontal mattress suture was placed. Another 4-0 Prolene simple continuous suture was placed for hemostasis. Bacitracin and Band-Aid was placed. Biopsy sent for pathological evaluation and labeled. The left posterior scalp lesion was addressed next. After adequate anesthetic was placed, a 3 mm punch biopsy was performed. The incision was closed with a 4-0 nylon horizontal mattress suture. Bacitracin and Band-Aid was placed. Specimen was sent for pathological evaluation. The right cheek was redraped and prepped as per usual sterile technique. A planned elliptical incision was drawn to include the lesion. A 15 blade scalpel was then used to excise the skin lesion. A marking stitch was placed at the superior medial border. Complete excision was performed. Specimen sent for pathological evaluation. The skin incision was approximated using interrupted 4-0 Prolene sutures. Bacitracin and Band-Aid was placed. Patient tolerated procedure well, was extubated and brought to the PACU in stable condition. Counts repoted as correct: Yes CARL JORGENSEN DO Jan 14, 2025 08:43
[2025-01-14 08:45] VITALS: BP 156/87; PULSE 76; RESP 16; O2SAT 100
[2025-01-14 08:55] VITALS: BP 135/73; PULSE 73; RESP 15; O2SAT 97
[2025-01-14 09:05] VITALS: BP 138/77; PULSE 72; RESP 15; O2SAT 98
[2025-01-14 09:15] VITALS: BP 135/74; PULSE 76; RESP 15; O2SAT 98
== END 2025-01-14 09:15 | disposition home or self-care (01) ==
LOC: PAS 05:28
PROVIDERS: ATTEND Surgery
DX: R22.0 Localized swelling, mass and lump, head (principal); L57.0 Actinic keratosis; E11.9 Type 2 diabetes mellitus without complications; K21.9 Gastro-esophageal reflux disease without esophagitis; E78.5 Hyperlipidemia, unspecified; F17.210 Nicotine dependence, cigarettes, uncomplicated; Z96.652 Presence of left artificial knee joint; Z90.49 Acquired absence of other specified parts of digestive tract; Z90.89 Acquired absence of other organs; Z98.890 Other specified postprocedural states; Z79.84 Long term (current) use of oral hypoglycemic drugs; Z79.891 Long term (current) use of opiate analgesic; Z79.899 Other long term (current) drug therapy; Z88.0 Allergy status to penicillin
CPT/HCPCS: 11104; 11105; 11442; 36415; 80053; 82948; 85025; 88305; J0131; J1100; J2003; J2250; J2704; J3010; J3490; J7030; J7120; Z7506; Z7508; Z7512; A4215; A4618; A7000